=== PATIENT | female | born 1990 | race Hispanic/Latino ===

== ENCOUNTER 2017-01-08 12:57 | Emergency (ER) | payer OTHER ==
[~2017-01-08 12:57] MED LIST: BACT800T5 PO; DIFL150T PO; PERC5TAB6 PO
[2017-01-08] MEDS ORDERED: ONDANSETRON 4 MG ORAL DISINTEGRATING TAB (S0181) As Ordered ONE (14:12)
--- NOTE | 2017-01-08 14:23 | EDDOCDS ---
Physician Documentation [facility] Name: Renato Mcdonnell Age: 26 yrs Sex: Female : 1990 Arrival Date: 01/08/2017 Time: 12:57 Bed TR4 Private MD: JHONY Piña Disposition: 01/08/17 14:08 Discharged to Home/Self Care. Impression: Nausea and vomiting, Diarrhea, unspecified. - Condition is Stable. - Discharge Instructions: Viral Gastroenteritis. - Prescriptions for ZOFRAN ODT 4 mg - dissolve 1 tablet by ORAL route 4 times per day As needed do not chew, do not swallow whole; 10 tablet. - Medication Reconciliation form. - Follow up: JHONY Piña; When: Call to arrange an appointment; Reason: Wound/Symptom Recheck, Recheck today's complaints, Worsening of conditions, Continuance of care. - Problem is an ongoing problem. - Symptoms are unchanged. Historical: - Allergies: no known allergies; - Home Meds: 1. Lamisil oral oral 1 tab once daily - PMHx: nail fungus; - PSHx: lump from left breast; Breast Augmentation; biopsy of intestine; - Social history: Smoking status: Patient states was never smoker of tobacco. Preferred Language: Portuguese. - Family history: Not pertinent. - : The pt / caregiver states he / she is not on anticoagulants. Home medication list is obtained from family members. - Exposure Risk Screening:: None identified. 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 (170.18 cm) (R); Pain 8/10; 12:59 Body Mass Index 25.06 (72.57 kg, 170.18 cm) ct3 MDM: 14:09 Ondansetron ODT Oral Disintegrating Tablet 4 mg PO once ordered. cc10 14:20 Financial registration complete. lg Administered Medications: 14:16 Drug: Ondansetron ODT 4 mg [ondansetron 4 mg disintegrating tablet (1 tabs)] Route: PO; kr3 14:20 CANCELLED (Other Intervention Used): Simethicone 80 mg PO once kr3 Signatures: Ana Gilbert, RN RN Kim Jimenez Reg Reg lg Robie, Kathleen, RN RN kr3 Von Cloud, PALisaC PAJose cc10 The chart was reviewed and I authenticate all verbal orders and agree with the evaluation and treatment provided.Corrections: (The following items were deleted from the chart) 14:20 14:09 Simethicone 80 mg PO once ordered. cc10 kr3 14:20 14:16 Simethicone 80 mg PO once ordered. kr3 kr3 MTDD
--- NOTE | 2017-01-08 14:23 | EDDOCDS ---
Nurse's Notes [facility] Name: Renato Mcdonnell Age: 26 yrs Sex: Female : 1990 Arrival Date: 01/08/2017 Time: 12:57 Bed TR4 Private MD: JHONY Piña Diagnosis: Nausea and vomiting;Diarrhea, unspecified Presentation: 01/08 13:04 Presenting complaint: states: states abd pain, diarrhea since srm yesterday. able to tolerate fluids. no abnormal vag bleeding. Presenting complaint: Patient states: abd cramping took buscapine and it helped. chills. Adult Sepsis Screening: The patient does not have new or worsening altered mentation. Patient's respiratory rate is less than 22. Systolic blood pressure is greater than 100. Patient has a qSOFA score of 0- Negative Sepsis Screen. Suicide/Homicide risk assessment- the patient denies having any suicidal and/or homicidal ideations and does not present with any other emotional, behavioral or mental health complaints. Status: The patient is a dependent. Transition of care: patient was not received from another setting of care. 13:04 Acuity: ZHEN Level 3 srm 13:04 Method Of Arrival: Walkin/Carried/Asstd srm Triage Assessment: 13:08 General: Appears in no apparent distress, Behavior is appropriate for age, cooperative. srm Pain: Pain currently is 9 out of 10 on a pain scale. Pt Declines HIV testing. GI: Reports cramping, diarrhea. 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 Lamisil oral oral 1 tab once daily - PMHx: nail fungus; - PSHx: lump from left breast; Breast Augmentation; biopsy of intestine; - Social history: Smoking status: Patient states was never smoker of tobacco. Preferred Language: Bruneian. - Family history: Not pertinent. - : The pt / caregiver states he / she is not on anticoagulants. Home medication list is obtained from family members. - Exposure Risk Screening:: None identified. Screenin:21 Screening information is obtained from the patient. Fall risk: No risks identified. kr3 Assistance ADL's: requires no assistance with activities of daily living. Abuse/DV Screen: The patient / caregiver reports he/she is: not in a situation that causes fear, pain or injury. Nutritional screening: No deficits noted. Advance Directives: Currently, there is no health care proxy. home support is adequate. Assessment: 14:20 Reassessment: Patient appears in no apparent distress at this time. Neurological: No kr3 deficits noted. Respiratory: Respiratory effort is even, labored. Derm: Skin is normal. Vital Signs: 12:59 BP 102 / 74; Pulse 100; Resp 18; Temp 98.3(O); Pulse Ox 100% on R/A; Weight 72.57 kg ct3 (R); Height 67 in. (170.18 cm) (R); Pain 8/10; 12:59 Body Mass Index 25.06 (72.57 kg, 170.18 cm) ct3 Vitals: 12:59 Log In Time: January 08, 2017 at 12:57. ct3 ED Course: 12:59 Patient visited by Judy Schultz PCA. ct3 12:59 Piña, [facility] is Private Physician. ct3 12:59 Patient moved to Waiting ct3 13:01 Patient moved to Pre RCE ct3 13:06 Triage Initiated srm 13:59 Patient moved to Family 1 [facility] 14:02 Von Cloud [facility] cc10 14:02 Donny Beltran MD is Attending Physician. cc10 14:02 Patient visited by Von Cloud PA-C. cc10 14:02 Patient visited by Von Cloud PA-C. cc10 14:08 Ayana [facility] is Referral Physician. cc10 14:18 Patient moved to TR4 ar3 14:21 The patient / caregiver is instructed regarding the plan of care and ED course. Patient kr3 has correct armband on for positive identification. 14:21 No IV's were initiated during this patient's visit. No procedures done that require kr3 assistance. Administered Medications: 14:16 Drug: Ondansetron ODT 4 mg [ondansetron 4 mg disintegrating tablet (1 tabs)] Route: PO; kr3 14:20 CANCELLED (Other Intervention Used): Simethicone 80 mg PO once kr3 Order Results: There are currently no results for this order. Outcome: 14:08 Discharge ordered by Provider. cc10 14:21 Discharge Assessment: patient administered narcotics - no. The following High Risk kr3 Discharge criteria are identified: None. Discharged to home ambulatory. Condition: stable. Discharge instructions given to patient, Instructed on discharge instructions, follow up and referral plans. medication usage, Demonstrated understanding of instructions, medications, Pt was receptive of discharge instructions/ teaching. Prescriptions given X 1. No special radiology studies were completed. Property sent home with patient. 14:22 Patient left the ED. kr3 Signatures: Ana Gilbert, RN SERGE [facility] Franci Sanchez RN RN kr3 Socorro Little, SAFETY INVESTIGATOR SAFETY INVESTIGATOR ar3 Judy Schultz, SAFETY INVESTIGATOR SAFETY INVESTIGATOR ct3 Loren Salvador RN RN [facility] Von Cloud, PA-C PA-C cc10 MTDD
--- NOTE | 2017-01-10 15:23 | EDDOCDS ---
Physician Documentation [facility] Name: Renato Mcdonnell Age: 26 yrs Sex: Female : 1990 Arrival Date: 01/08/2017 Time: 12:57 Bed TR4 Private MD: JHONY Piña Disposition: 01/08/17 14:08 Discharged to Home/Self Care. Impression: Nausea and vomiting, Diarrhea, unspecified. - Condition is Stable. - Discharge Instructions: Viral Gastroenteritis. - Prescriptions for ZOFRAN ODT 4 mg - dissolve 1 tablet by ORAL route 4 times per day As needed do not chew, do not swallow whole; 10 tablet. - Medication Reconciliation form. - Follow up: JHONY Piña; When: Call to arrange an appointment; Reason: Wound/Symptom Recheck, Recheck today's complaints, Worsening of conditions, Continuance of care. - Problem is an ongoing problem. - Symptoms are unchanged. Historical: - Allergies: no known allergies; - Home Meds: 1. Lamisil oral oral 1 tab once daily - PMHx: nail fungus; - PSHx: lump from left breast; Breast Augmentation; biopsy of intestine; - Social history: Smoking status: Patient states was never smoker of tobacco. Preferred Language: Icelandic. - Family history: Not pertinent. - : The pt / caregiver states he / she is not on anticoagulants. Home medication list is obtained from family members. - Exposure Risk Screening:: None identified. 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 (170.18 cm) (R); Pain 8/10; 12:59 Body Mass Index 25.06 (72.57 kg, 170.18 cm) ct3 MDM: 14:09 Ondansetron ODT Oral Disintegrating Tablet 4 mg PO once ordered. cc10 14:20 Financial registration complete. lg 16:10 [facility] Payment Agreement was scanned into [employer] and attached to record. lg 01/09 12:08 T-Sheet-- Draft Copy was scanned into Sc[employer]d and attached to record. gb Administered Medications: 01/08 14:16 Drug: Ondansetron ODT 4 mg [ondansetron 4 mg disintegrating tablet (1 tabs)] Route: PO; kr3 14:20 CANCELLED (Other Intervention Used): Simethicone 80 mg PO once kr3 Signatures: Ana Gilbert, RN SERGE srm Nenita Rich, Reg Reg gb Kim Junior, Reg Reg lg Franci Sanchez RN RN kr3 Von Cloud PAJose PALisaC cc10 The chart was reviewed and I authenticate all verbal orders and agree with the evaluation and treatment provided.Corrections: (The following items were deleted from the chart) 14:20 14:09 Simethicone 80 mg PO once ordered. cc10 kr3 14:20 14:16 Simethicone 80 mg PO once ordered. kr3 kr3 Attachments: 16:10 [facility] Payment Agreement lg 01/09 12:08 T-Sheet-- Draft Copy Chart Complete MTDD
--- NOTE | 2017-01-10 15:23 | EDDOCDS ---
Physician Documentation [facility] Name: Renato Mcdonnell Age: 26 yrs Sex: Female : 1990 Arrival Date: 01/08/2017 Time: 12:57 Bed TR4 Private MD: JHONY Piña Disposition: 01/08/17 14:08 Discharged to Home/Self Care. Impression: Nausea and vomiting, Diarrhea, unspecified. - Condition is Stable. - Discharge Instructions: Viral Gastroenteritis. - Prescriptions for ZOFRAN ODT 4 mg - dissolve 1 tablet by ORAL route 4 times per day As needed do not chew, do not swallow whole; 10 tablet. - Medication Reconciliation form. - Follow up: JHONY Piña; When: Call to arrange an appointment; Reason: Wound/Symptom Recheck, Recheck today's complaints, Worsening of conditions, Continuance of care. - Problem is an ongoing problem. - Symptoms are unchanged. Historical: - Allergies: no known allergies; - Home Meds: 1. Lamisil oral oral 1 tab once daily - PMHx: nail fungus; - PSHx: lump from left breast; Breast Augmentation; biopsy of intestine; - Social history: Smoking status: Patient states was never smoker of tobacco. Preferred Language: Occitan. - Family history: Not pertinent. - : The pt / caregiver states he / she is not on anticoagulants. Home medication list is obtained from family members. - Exposure Risk Screening:: None identified. 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 (170.18 cm) (R); Pain 8/10; 12:59 Body Mass Index 25.06 (72.57 kg, 170.18 cm) ct3 MDM: 14:09 Ondansetron ODT Oral Disintegrating Tablet 4 mg PO once ordered. cc10 14:20 Financial registration complete. lg 16:10 [facility] Payment Agreement was scanned into [employer] and attached to record. lg 01/09 12:08 T-Sheet-- Draft Copy was scanned into [employer] and attached to record. gb Administered Medications: 01/08 14:16 Drug: Ondansetron ODT 4 mg [ondansetron 4 mg disintegrating tablet (1 tabs)] Route: PO; kr3 14:20 CANCELLED (Other Intervention Used): Simethicone 80 mg PO once kr3 Signatures: Ana Gilbert, RN SERGE srm Nenita Rich, Reg Reg gb Kim Junior, Reg Reg lg Franci Sanchez RN RN kr3 Von Cloud PAJose PALisaC cc10 The chart was reviewed and I authenticate all verbal orders and agree with the evaluation and treatment provided.Corrections: (The following items were deleted from the chart) 14:20 14:09 Simethicone 80 mg PO once ordered. cc10 kr3 14:20 14:16 Simethicone 80 mg PO once ordered. kr3 kr3 Attachments: 16:10 [facility] Payment Agreement lg 01/09 12:08 T-Sheet-- Draft Copy Chart Complete MTDD
--- NOTE | 2017-01-10 15:23 | EDDOCDS ---
Nurse's Notes [facility] Name: Renato Mcdonnell Age: 26 yrs Sex: Female : 1990 Arrival Date: 01/08/2017 Time: 12:57 Bed TR4 Private MD: JHONY Piña Diagnosis: Nausea and vomiting;Diarrhea, unspecified Presentation: 01/08 13:04 Presenting complaint: states: states abd pain, diarrhea since srm yesterday. able to tolerate fluids. no abnormal vag bleeding. Presenting complaint: Patient states: abd cramping took buscapine and it helped. chills. Adult Sepsis Screening: The patient does not have new or worsening altered mentation. Patient's respiratory rate is less than 22. Systolic blood pressure is greater than 100. Patient has a qSOFA score of 0- Negative Sepsis Screen. Suicide/Homicide risk assessment- the patient denies having any suicidal and/or homicidal ideations and does not present with any other emotional, behavioral or mental health complaints. Status: The patient is a dependent. Transition of care: patient was not received from another setting of care. 13:04 Acuity: ZHEN Level 3 srm 13:04 Method Of Arrival: Walkin/Carried/Asstd srm Triage Assessment: 13:08 General: Appears in no apparent distress, Behavior is appropriate for age, cooperative. srm Pain: Pain currently is 9 out of 10 on a pain scale. Pt Declines HIV testing. GI: Reports cramping, diarrhea. 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 Lamisil oral oral 1 tab once daily - PMHx: nail fungus; - PSHx: lump from left breast; Breast Augmentation; biopsy of intestine; - Social history: Smoking status: Patient states was never smoker of tobacco. Preferred Language: Guatemalan. - Family history: Not pertinent. - : The pt / caregiver states he / she is not on anticoagulants. Home medication list is obtained from family members. - Exposure Risk Screening:: None identified. Screenin:21 Screening information is obtained from the patient. Fall risk: No risks identified. kr3 Assistance ADL's: requires no assistance with activities of daily living. Abuse/DV Screen: The patient / caregiver reports he/she is: not in a situation that causes fear, pain or injury. Nutritional screening: No deficits noted. Advance Directives: Currently, there is no health care proxy. home support is adequate. Assessment: 14:20 Reassessment: Patient appears in no apparent distress at this time. Neurological: No kr3 deficits noted. Respiratory: Respiratory effort is even, labored. Derm: Skin is normal. Vital Signs: 12:59 BP 102 / 74; Pulse 100; Resp 18; Temp 98.3(O); Pulse Ox 100% on R/A; Weight 72.57 kg ct3 (R); Height 67 in. (170.18 cm) (R); Pain 8/10; 12:59 Body Mass Index 25.06 (72.57 kg, 170.18 cm) ct3 Vitals: 12:59 Log In Time: January 08, 2017 at 12:57. ct3 ED Course: 12:59 Patient visited by Judy Schultz PCA. ct3 12:59 Piña, [facility] is Private Physician. ct3 12:59 Patient moved to Waiting ct3 13:01 Patient moved to Pre RCE ct3 13:06 Triage Initiated srm 13:59 Patient moved to Family 1 [facility] 14:02 Von Cloud PA-C [facility] cc10 14:02 Donny Beltran MD is Attending Physician. cc10 14:02 Patient visited by Von Cloud PA-C. cc10 14:02 Patient visited by Von Cloud PA-C. cc10 14:08 Piña, [facility] is Referral Physician. cc10 14:18 Patient moved to TR4 ar3 14:21 The patient / caregiver is instructed regarding the plan of care and ED course. Patient kr3 has correct armband on for positive identification. 14:21 No IV's were initiated during this patient's visit. No procedures done that require kr3 assistance. 16:10 [facility] [place] Agreement was scanned into [employer] and attached to record. lg 01/09 12:08 T-Sheet-- Draft Copy was scanned into [employer] and attached to record. gb Administered Medications: 01/08 14:16 Drug: Ondansetron ODT 4 mg [ondansetron 4 mg disintegrating tablet (1 tabs)] Route: PO; kr3 14:20 CANCELLED (Other Intervention Used): Simethicone 80 mg PO once kr3 Order Results: There are currently no results for this order. Outcome: 14:08 Discharge ordered by Provider. cc10 14:21 Discharge Assessment: patient administered narcotics - no. The following High Risk kr3 Discharge criteria are identified: None. Discharged to home ambulatory. Condition: stable. Discharge instructions given to patient, Instructed on discharge instructions, follow up and referral plans. medication usage, Demonstrated understanding of instructions, medications, Pt was receptive of discharge instructions/ teaching. Prescriptions given X 1. No special radiology studies were completed. Property sent home with patient. 14:22 Patient left the ED. kr3 Signatures: Ana Gilbert, RN RN srm Nenita Rich, Reg Reg gb Kim Junior, Reg Reg lg Franci Sanchez,RN RN kr3 Socorro Little, LEVEL VIAL SEALER LEVEL VIAL SEALER ar3 Schultz, Judy, LEVEL VIAL SEALER LEVEL VIAL SEALER ct3 Loren Salvador RN RN cjh Coniski, Colin, PA-C PA-C cc10 Chart Complete RACHEL
== END 2017-01-08 14:22 | disposition home or self-care (01) ==
LOC: M ED 12:57
DX: R11.2 Nausea with vomiting, unspecified (principal); R19.7 Diarrhea, unspecified; B35.1 Tinea unguium; Z79.899 Other long term (current) drug therapy

== ENCOUNTER 2017-02-18 20:27 | Emergency (ER) | payer OTHER ==
[~2017-02-18] VITALS: Ht 170.2 cm; Wt 74.8 kg
[2017-02-18] MEDS ORDERED: BIOT1CAP2 PO (20:35)
[2017-02-18] MEDS ORDERED: NS 1,000 ML IV ONE (22:45)
[2017-02-18] MEDS ORDERED: MORPHINE 2 MG/ML 1ML SYRINGE IV PRN (22:45)
[2017-02-18] MEDS ORDERED: ONDANSETRON 4MG/2ML VIAL (J2405) IV ONE (22:45)
[2017-02-18 23:15] LABS: BASO % 0.4 % (0.0-1.0); EOS # 0.2 K/mm3 (0.0-0.50); EOS % 2.2 % (0.0-3.0); LARGE UNSTAINED CELL # 0.2 K/mm3 (0.0-0.4); LYMPH # 3.2 K/mm3 (1.5-6.5); LYMPH % 39.9 % (24.0-44.0); MEAN CORPUSCULAR HEMOGLOBIN 31.3 pg (27.0-33.0); MEAN CORPUSCULAR HGB CONC 34.1 g/dl (32.0-36.5); MEAN CORPUSCULAR VOLUME 91.8 fl (80.0-96.0); MONO # 0.4 K/mm3 (0.0-0.8); MONO % 5.2 % (0.0-5.0); NEUTROPHILS # 4.1 K/mm3 (1.8-7.7); NEUTROPHILS % 50.3 % (36.0-66.0); PLATELET COUNT, AUTOMATED 353 k/mm3 (150-450); RED CELL DISTRIBUTION WIDTH 11.9 % (11.5-14.5); WHITE BLOOD COUNT 8.1 K/mm3 (4.0-10.0)
[2017-02-18] MEDS ORDERED: ISOVUE-370 76% 100ML VIAL (Q9967) As Ordered ONE (23:43)
[2017-02-18 23:51] LABS: ALBUMIN 4.2 GM/DL (3.2-5.2); ALBUMIN/GLOBULIN RATIO 1.27 (1.00-1.93); ALKALINE PHOSPHATASE 83 U/L (45-117); ALT/SGPT 19 U/L (12-78); ANION GAP 8 MEQ/L (8-16); AST/SGOT 17 U/L (15-37); BILIRUBIN,DIRECT < 0.1 MG/DL (0.0-0.2); BILIRUBIN,TOTAL 0.3 MG/DL (0.2-1.0); BLOOD UREA NITROGEN 17 MG/DL (7-18); CALCIUM LEVEL 9.2 MG/DL (8.5-10.1); CARBON DIOXIDE LEVEL 27 MEQ/L (21-32); CHLORIDE LEVEL 106 MEQ/L (98-107); CREATININE FOR GFR 0.61 MG/DL (0.55-1.02); GLOMERULAR FILTRATION RATE > 60.0 (>60); GLUCOSE, FASTING 92 MG/DL (70-105); POTASSIUM SERUM 3.9 MEQ/L (3.5-5.1); SODIUM LEVEL 141 MEQ/L (136-145); TOTAL PROTEIN 7.5 GM/DL (6.4-8.2)
--- NOTE | 2017-02-19 00:20 | REPUSA ---
CT of the abdomen and pelvis with contrast Clinical statement: Pain. Technique: Multiple axial CT images were obtained from the base of the lungs through the floor of the pelvis utilizing 5 mm axial slices after administration of nonionic intravenous contrast. Coronal an d sagittal reconstructions were also obtained. Comparison: 10/03/2016. Findings: Chest: The visualized lung bases are clear. Abdomen: The liver, spleen, pancreas, kidneys, gallbladder, and adrenal glands are unremarkable. The aorta is within normal limits. There is no evidence of abdominal lymphadenopathy or ascites. Pelvis: The bowel is unremarkable, with no obstructive or inflammatory changes. The appendix is not c learly identified, but no inflammatory changes are seen in the right lower quadrant. The urinary blad km is within normal limits. IUD is in place within the uterus. The other pelvic structures appear gr ossly intact. There is no evidence of pelvic lymphadenopathy or ascites. Bones: There are no suspicious osseous abnormalities seen. Impression: Unremarkable CT examination of the abdomen and pelvis.
[2017-02-19] MEDS ORDERED: CIPROFLOXACIN 250 MG TAB PO ONE (00:45)
[2017-02-19] MEDS ORDERED: CIPR500T89 PO (00:49)
[2017-02-19] MEDS ORDERED: IBUP600T26 PO (00:49)
[2017-02-19 00:54] VITALS: BP 119/76
[2017-02-19] MEDS ORDERED: CIPROFLOXACIN 500 MG TAB PO ONE (01:15)
== END 2017-02-19 01:10 | disposition home or self-care (01) ==
LOC: M ED 21:29
DX: N30.90 Cystitis, unspecified without hematuria (principal)
CPT/HCPCS: 74177; 80048; 80076; 81001; 81025; 85025; 96374; 96375; 99282; J2405; Q9967

== ENCOUNTER → 2017-03-28 | Outpatient (REF) | payer OTHER ==
[~2017-03-28] MED LIST changes: +BIOT1CAP2 PO; +CIPR500T89 PO; +IBUP600T26 PO
[2017-03-28 19:29] LABS: BACTERIA, URINE MOD AMOUNT; HYALINE CAST, URINE NONE SEEN /lpf (0-1); MICROSCOPIC EXAM PERFORMED; RBC, URINE 0-1 /hpf (0-3); SQUAMOUS EPITHELIAL CELL URINE SMALL AMOUNT /hpf (SMALL AMT); WBC, URINE 0-1 /hpf (0-3)
== END ==
LOC: M SMT 17:07
PROVIDERS: ATTEND Specialist
DX: R30.0 Dysuria (principal)

== ENCOUNTER → 2017-07-05 | Outpatient (REF) | payer OTHER ==
[~2017-07-05] MED LIST changes: +CIPR-249 PO; -CIPR500T89 PO; +IBUP-1022 PO; -IBUP600T26 PO; +PERC5TAB12 PO; -PERC5TAB6 PO
[2017-07-05 13:33] LABS: MICROSCOPIC EXAM PERFORMED
[2017-07-05 13:34] LABS: BACTERIA, URINE LARGE AMOUNT; HYALINE CAST, URINE NONE SEEN /lpf (0-1); RBC, URINE 0-1 /hpf (0-3); SQUAMOUS EPITHELIAL CELL URINE LARGE AMOUNT /hpf (SMALL AMT)
== END ==
LOC: M SMT 12:55
PROVIDERS: ATTEND Specialist
DX: N30.30 Trigonitis without hematuria (principal)